=== PATIENT | male | born 1945 | race Caucasian/White ===

== ENCOUNTER 2019-02-18 12:46 | Emergency (ER) | payer MEDICARE, OTHER ==
[~2019-02-18] VITALS: Ht 167.6 cm; Wt 64.9 kg
[2019-02-18 12:53] VITALS: BP 156/84; Ht 167.6 cm; Wt 64.9 kg
== END 2019-02-18 13:44 | disposition home or self-care (01) ==
LOC: ED 12:46
DX: K40.90 Unilateral inguinal hernia, without obstruction or gangrene, not specified as recurrent (principal); Z90.89 Acquired absence of other organs

== ENCOUNTER 2019-08-10 16:35 | Emergency (ER) | payer MEDICARE, OTHER ==
[~2019-08-10] VITALS: Ht 165.1 cm; Wt 65.8 kg
[2019-08-10 16:43] VITALS: Ht 165.1 cm; Wt 65.8 kg
[2019-08-10 17:42] LABS: microscopic required? YES; urine erythrocyte NEGATIVE (NEGATIVE)
[2019-08-10 21:34] LABS: BASOPHIL % 0.4 % (0-2); PLATELET COUNT 149 x10^3mcL (130-400); RED CELL DISTRIBUTION WIDTH 13.8 % (11.5-14.5)
[2019-08-10 21:49] LABS: CALCIUM 9.1 mg/dL (8.5-10.1); CARBON DIOXIDE 25.8 mmol/L (21-32); CHLORIDE SERUM 103 mmol/L (98-107); CREATININE SERUM 0.8 mg/dL (0.7-1.3); GLUCOSE SERUM 112 mg/dL (74-106); POTASSIUM SERUM 3.7 mmol/L (3.5-5.1); SODIUM SERUM 137 mmol/L (136-145)
[2019-08-10 21:53] LABS: ALBUMIN 3.9 g/dL (3.4-5.0); ALKALINE PHOSPHATASE 87 U/L (46-116); ALT/SGPT 53 U/L (16-63); AST/SGOT 23 U/L (15-37); BILIRUBIN TOTAL 0.51 mg/dL (0.20-1.00); LIPASE 155 IU/L (73-393); TOTAL PROTEIN, SERUM 7.8 g/dL (6.4-8.2)
[2019-08-11 01:03] VITALS: BP 125/60
== END 2019-08-11 01:03 | disposition home or self-care (01) ==
LOC: ED 16:35
PROVIDERS: Emergency Medicine
DX: N39.0 Urinary tract infection, site not specified (principal); E11.9 Type 2 diabetes mellitus without complications; Z98.890 Other specified postprocedural states
CPT/HCPCS: J0696; J1885; J7030; J7060